=== PATIENT | female | born 1970 | race Two or more races ===

== ENCOUNTER → 2019-03-19 09:30 | Outpatient (CLI) | payer BC | END | disposition home or self-care (01) | LOC: D.MAMMO 09:30 | PROVIDERS: ATTEND Student in an Organized Health Care Education/Training Program | DX: Z12.31 Encounter for screening mammogram for malignant neoplasm of breast (principal) ==

== ENCOUNTER 2019-04-30 10:10 | Inpatient (IN) | payer BC ==
[2019-04-28 11:41] LABS: BASOPHILS 0.1 % (0-2); EOSINOPHILS 1.8 % (0-7); HEMATOCRIT 42.6 % (36.0-48.0); HEMOGLOBIN 13.9 g/dL (12-16); IMMATURE GRANULOCYTES 0.3 % (0-5); MCH 27.6 pg (26.0-34.0); MCHC 32.6 g/dL (31.0-37.0); MCV 84.7 fL (80.0-100.0); MEAN PLATELET VOLUME 9.7 fL (7.4-10.4); MONOCYTES 6.8 % (2-11); PLATELET COUNT 292 10x3/uL (130-400); RBC 5.03 10x6/uL (4.00-5.40); RDW 24.7 % (11.5-14.5); WBC 6.8 10x3/uL (4.8-10.8)
[2019-04-28 12:13] LABS: CALC OSMOLALITY 276 mosm/kg (275-300); CALCIUM 8.7 mg/dL (8.5-10.1); CARBON DIOXIDE 24.8 mmol/L (21.0-32.0); CHLORIDE - SERUM 104 mmol/L (98-107); CREATININE - SERUM 0.7 mg/dL (0.6-1.3); GLUCOSE 97 mg/dL (74-106); POTASSIUM - SERUM 4.2 mmol/L (3.5-5.1); SODIUM 139 mmol/L (136-145); UREA NITROGEN 10 mg/dL (7-18); eGFR NON AFRICAN AMERICAN > 90 mL/min (90-120)
[2019-04-30] VITALS (10 sets, daily range): BP systolic 122–145; BP diastolic 58–69; Ht 157.5 cm; Wt 73.5 kg
[~2019-04-30] VITALS: Ht 157.5 cm; Wt 73.5 kg
[2019-04-30 06:33] LABS: HCG URINE NEGATIVE (NEGATIVE)
--- NOTE | 2019-04-30 09:55 | NUR ---
DON [id number] LOT# [id number] EXP DATE 12/19/2023
[~2019-04-30 10:10] MED LIST: FERROUS SULFAT325 MG PO
--- NOTE | 2019-04-30 11:20 | NUR ---
RECEIVED PT BY BED TO ROOM 1278, POST RUPERT, BILATERAL SALPINGECTOMY BY DR. VILLARREAL. PT IS AWAKE, BUT DROWSY, ALERT AND ORIENTED. SEE ADMISSION ASSESSMENT FOR COMPLETE ASSESSMENT. PT HAS BONILLA CATH NOTED TO HAVE CLEAR BLUE/GREEN URINE IN BONILLA BAG, 500 CC'S NOTED. PT HAS LARGE WHITE DRESSING OVER ABDOMEN, LOW TRANSVERSE INCISION, C/D/I. SCD'S PLACED. PT HAS LR INFUSING OFF PUMP AT SLOW RATE, NO REDNESS OR SWELLING NOTED TO IV SITE TO RIGHT HAND. SR UP X 2, CALL LIGHT AND PHONE WITHIN REACH.
--- NOTE | 2019-04-30 12:00 | NUR ---
INCENTIVE SPIROMETER GIVEN TO PATIENT WITH GOAL LEVEL DEMONSTRATED ON SPIROMETER. PATIENT DEMONSTRATES USING SPIROMETER WITHOUT DIFFICULTY.
--- NOTE | 2019-04-30 12:10 | NUR ---
DR. VILLARREAL ON UNIT, TO ROOM TO SPEAK WITH PT.
--- NOTE | 2019-04-30 12:36 | NUR ---
PT SITTING UP IN BED EATING CLEAR LIQUID DIET. AWAKE, ALERT. MALE VISITOR AT BEDSIDE. NO COMPLAINTS OF PAIN OR NAUSEA AT THIS TIME.
--- NOTE | 2019-04-30 13:59 | NUR ---
SITTING UP IN BED. AWAKE, ALERT. STATES IS COMFORTABLE WITH A STATED PAIN LEVEL OF 5. HAS BEEN USING THE MOTH PROOFER. BONILLA DRAINING WELL TO GRAVITY. SCD'S IN PLACE AND CYCLING. IV AND MOTH PROOFER CONTINUES TO INFUSE WITHOUT DIFFICULTY. USING INCENTIVE SPIROMETER. NAUSEA IS BETTER. NO OTHER COMPLAINTS AT THIS TIME.
--- NOTE | 2019-04-30 14:30 | NUR ---
RESTING WITH EYES CLOSED. ROOM DARKENED WTH DIMMED LIGHTS. NO COMPLAINTS AT THIS TIME.
--- NOTE | 2019-04-30 15:30 | NUR ---
LAB HERE TO DRAW CBC. PT AWAKE AND ALERT. FEMALE VISITOR ALSO HERE TO SEE PT.
[2019-04-30 15:38] LABS: BASOPHILS 0 % (0-2); EOSINOPHILS 0 % (0-7); HEMATOCRIT 37.5 % (36.0-48.0); HEMOGLOBIN 12.2 g/dL (12-16); IMMATURE GRANULOCYTES 0.3 % (0-5); LYMPHOCYTES 2.6 % (15-50); MCH 27.6 pg (26.0-34.0); MCHC 32.5 g/dL (31.0-37.0); MCV 84.8 fL (80.0-100.0); MEAN PLATELET VOLUME 9.9 fL (7.4-10.4); MONOCYTES 2.5 % (2-11); NEUTROPHILS 94.6 % (40-80); RBC 4.42 10x6/uL (4.00-5.40); RDW 24.1 % (11.5-14.5); WBC 15.5 10x3/uL (4.8-10.8)
--- NOTE | 2019-04-30 15:40 | NUR ---
PT STATES SHE HAD A SMALL AMOUNT OF EMESIS. 5-10ML CLEAR EMESIS NOTED IN EMESIS BAG
[2019-04-30 15:51] LABS: PLATELET COUNT 230 10x3/uL (130-400)
--- NOTE | 2019-04-30 17:54 | NUR ---
REPORT CALLED TO DR. DIMA MD MOBILE HOME MECHANIC. PT C/O NAUSEA, AND IS REQUESTING SOMETHING FOR NAUSEA. TELEPHONE ORDER RECEIVED TO ADMINISTER ZOFRAN 4 MG Q 4 HRS PRN N/V.
--- NOTE | 2019-04-30 18:32 | NUR ---
RESTING COMFORTABLY. NAUSEA RESOLVED WITH ZOFRAN. AND OTHER VISITOR AT BEDSIDE. URINE HAS TRANSITIONED FROM LIGHT BLUE/GREEN TO YELLOW.
--- NOTE | 2019-04-30 19:23 | NUR ---
BEDSIDE REPORT REC'D FROM Pauline BURCIAGA RN. PT REC'D SITTING IN HIGH FOWLERS POSITION WATCHING TV AND HOLDING EMESIS BAG. REPORTS THAT SHE FEELS NAUSEA IN "WAVES" AND IS NOT CURRENTLY NAUSEATED JUST HOLDING BAG IN CASE. C/O "BURNING" IN ABD AND CRAMPING TO LOWER BACK 5/10, REPORTS THAT COMBER TENDER IS CONTROLLING PAIN WELL, DENIES ADDITIONAL NEEDS FOR PAIN INTERVENTION AT THIS TIME. ASSIST TO SITTING POSITION ON SIDE OF BED PER PT REQUEST.
--- NOTE | 2019-04-30 19:33 | NUR ---
ASSISTED BACK TO SEMI FOWLERS POSITION. REPORTS FEELING DIZZY WHILE SITTING UP ON EDGE OF BED. DENIES NAUSEA AND REPORTS THAT PAIN TO BACK IS "MUCH BETTER." ICE PACK PROVIDED. BED IN LOW POSITION WITH SRUP X2. CALL LIGHT AND PHONE WITHIN REACH. WILL CONTINUE TO MONITOR.
--- NOTE | 2019-04-30 19:42 | NUR ---
SHIFT ASSESSMENT COMPLETED PER FLOWSHEET. VSS. SCD'S ON BLE. INCENTIVE SPIROMETER DONE, COUGH, TURN AND DEEP BREATHING DONE WITH EXCELLENT EFFORT. POC DISCUSSED WITH PT, VERBALIZES UNDERSTANDING AND DENIES QUESTIONS. STATES THAT SPOUSE WILL BE COMING TO STAY OVERNIGHT WITH HER, LINENS PROVIDED. INCISION NOTED TO UMIBILCUS, WELL APPROXIMATED, GLUE INTACT WITH NO S/S OF INFECTION, NO DRAINAGE NOTED. PT EDUCATED ON INCISIONAL CARE WHEN ABLE TO SHOWER AND S/S OF INFECTIONB IN ADDITION TO EDUCATION DOCUMENTED ON FLOWSHEET, VERBALIZES UNDERSTANDING. BED IN LOW POSITION WITH SRUP X2. CALL LIGHT AND PHONE WITHIN REACH. WILL CONTINUE TO MONITOR. BONILLA DRAINING LIGHT BLUE/GREEN TINGED URINE TO BEDSIDE DRAINAGE. BOWEL SOUNDS PRESENT AND ACTIVE X4 QUADRANTS, DENIES PASSING FLATUS BUT REPORTS THAT SHE IS BELCHING FREQUENTLY. WILL CONTINUE TO MONITOR.
--- NOTE | 2019-04-30 21:20 | NUR ---
PT REPOSITIONED AT THIS TIME. PAD PLACED AND PERICARE PROVIDED. NO NAUSEA NOTED AT THIS TIME. Mariangel WOODRUFF RN
[2019-05-01 00:08] VITALS: BP 133/60
--- NOTE | 2019-05-01 00:08 | NUR ---
PT MEDICATED FOR PAIN LEVEL OF 6. VSS. Mariangel WOODRUFF RN
--- NOTE | 2019-05-01 00:48 | NUR ---
PT ASLEEP AT THIS TIME. DID NOT AWAKEN FOR PAIN REASSESSEMENT. Mariangel WOODRUFF RN
--- NOTE | 2019-05-01 02:00 | NUR ---
PT RESTING COMFORTABLY AT THIS TIME. NO S/S OF PAIN NOTED. Mariangel WOODRUFF RN
--- NOTE | 2019-05-01 04:00 | NUR ---
PT CONTINUES RESTING COMFORTABLY. RESPS EVEN AND UNLABORED. Mariangel WOODRUFF RN
[2019-05-01 06:12] VITALS: BP 120/59
--- NOTE | 2019-05-01 06:12 | NUR ---
VSS. PT MEDICATED FOR PAIN OF 5. NO DISTRESS NOTED. Mariangel WOODRUFF RN
--- NOTE | 2019-05-01 07:00 | NUR ---
THIS RN AND Mariangel WOODRUFF RN TO BEDSIDE FOR BEDSIDE SHIFT REPORT. REC'D PT AA&O X 4 SITTING UP IN BED VISITING W/SPOUSE. PAIN ASSESSED. PT REPORTS PAIN 5/10 AFTER TORADOL ADMIN. PT REPORTS PAIN 5/10 IS TOLERABLE FOR HER. DENIES NEEDS FOR FURTHER PAIN INTERVENTIONS AT THIS TIME. IV SITE TO LEFT HAND W/20GUAGE CATH. NS INFUSING AT 30ML/HR AND DILAUDID PARTNER IN PLACE. BONILLA CATH IN PLACE DRAINING VIA GRAVITY AT BEDSIDE. PT REQUEST TO AM SHIFT TO HAVE SCD WRAPS REMOVED. SCD WRAPS OFF AT THIS TIME. PT DENIES PASSING FLATUS, BUT REPORTS SHE HAS BEEN BELCHING. WHITE BOARD UPDATED AND GOALS FOR THE DAY DISCUSSED W/PT AND SPOUSE. PT INFORMED THAT SHIFT ASSESSMENT WILL BE COMPLETED ONCE SHE HAS FINISHED HER BREAKFAST. PT AGREEABLE.
--- NOTE | 2019-05-01 07:30 | NUR ---
PT'S SPOUSE TO NURSING DESK TO REPORT PT IS QUESTIONING IF SHE SHOULD TAKE HER HOME MEDS. THIS RN TO PT'S ROOM TO ADVISE HER TO TALK WITH DR VILLARREAL WHEN SHE ROUNDS TODAY TO HAVE DR VILLARREAL RESTART HER HOME MEDS. PT AGREEABLE.
[2019-05-01 07:36] LABS: BASOPHILS 0.1 % (0-2); EOSINOPHILS 0.4 % (0-7); HEMATOCRIT 33.6 % (36.0-48.0); IMMATURE GRANULOCYTES 0.3 % (0-5); LYMPHOCYTES 12.8 % (15-50); MCH 27.6 pg (26.0-34.0); MCHC 32.7 g/dL (31.0-37.0); MCV 84.4 fL (80.0-100.0); MONOCYTES 10.7 % (2-11); NEUTROPHILS 75.7 % (40-80); PLATELET COUNT 217 10x3/uL (130-400); RBC 3.98 10x6/uL (4.00-5.40); RDW 24.7 % (11.5-14.5)
--- NOTE | 2019-05-01 08:00 | NUR ---
THIS RN TO BEDSIDE FOR SHIFT ASSESSMENT. PT AA&O X 4. PT HAS EATEN 100% OF BREAKFAST TRAY SERVED. CHEERFUL AND VISITNG WITH SPOUSE. BREATH SOUNDS CL/=, ABD SOFT AND NON DISTENDED. BOWEL SOUNDS PRESENT X 4. 1 LAP INCISION TO UMBILICUS W/DRIED BLOOD NOTED. LOW TRANSVERSE INCISION W/DERMABOND C/D/I. BONILLA CATH REMAINS IN PLACED AND DRAINING VIA GRAVITY. SCD WRAPS REMAIN OFF PER PT REQUEST. PT DENIES NEEDS AT THIS TIME. RATES PAIN 4/10.
[2019-05-01 08:13] VITALS: BP 141/67
--- NOTE | 2019-05-01 09:00 | NUR ---
DR VILLARREAL ON THE UNIT. HAS BEEN TO SEE PT. ORDERS REC'D TO TO NORMALIZE PT. BONILLA MAY BE DISCONTINUED. PT MAY SHOWER AND BEGIN AMBULATING. PO PAIN MEDICATION ORDERS REC'D.
--- NOTE | 2019-05-01 09:20 | NUR ---
TO BEDSIDE TO SALINE LOCK IV SITE AND D/C BONILLA. APPROX 600ML EMPTIED FROM BONILLA. PT TOLERATED WELL. PT EDUCATED ON THE NEED TO OBTAIN THE NEXT 3 VOIDS. NUNS CAP PLACED IN COMMODE. PT TO SITTING ON SIDE OF BED. IV SITE WRAPPED SO PT MAY SHOWER. PT DENIES FEEDING DIZZY. AMBULATORY TO SHOWER W/OUT ASSISTANCE. HIBICLENZ WASH PROVIDED ALONG W/PLAIN SOAP, TOWELS,RAGS,ETC. PT'S BED LINENS CHAGNED. TRASH REMOVED FROM ROOM.
--- NOTE | 2019-05-01 09:45 | NUR ---
PT OUT OF SHOWER. REPORTS PAIN IS STILL 4/10. DENIES NEEDING ADDITIONAL PAIN INTERVENTIONS AT THIS TIME. PT'S MOTHER IN LAW TO ROOM FOR VISIT. BED LOW, SIDE RAILS UP X 2. CALL LIGHT AT PT'S SIDE.
--- NOTE | 2019-05-01 10:40 | NUR ---
PT AMBULATING IN HALLWAY WITH FAMILY MEMBER.
--- NOTE | 2019-05-01 11:53 | OP ---
PATIENT NAME: YONATHAN VILLAGOMEZ MEDICAL RECORD: [id number] :68 LOCATION:[facility]1278 ADMISSION DATE:04/30/19 SURGEON: SUZE VILLARREAL DO DATE OF OPERATION: 04/30/2019 PREOPERATIVE DIAGNOSIS: Symptomatic fibroid uterus. POSTOPERATIVE DIAGNOSIS: Symptomatic fibroid uterus. PRIMARY SURGEON: Suze Villarreal DO FILTERS ASSEMBLER SURGEON: Dr. Shelby. ANESTHESIOLOGIST: Bárbara Aguirre CRNA PROCEDURE: Laparoscopic converted to open total abdominal hysterectomy and bilateral salpingectomy, cystoscopy. FINDINGS: Enlarged fibroid uterus, normal appearing fallopian tubes and bilateral ovaries. SPECIMENS: Uterus, cervix and bilateral fallopian tubes. ESTIMATED BLOOD LOSS: 200 cc. IV FLUIDS: 2100 cc. URINE OUTPUT: 175 cc blue urine, the patient was given methylene blue for cystoscopy. COMPLICATIONS: None. CONDITION: Stable. DESCRIPTION OF PROCEDURE: The risks, benefits, alternatives and indications of the procedure were discussed with the patient. She voiced understanding of the procedure and signed the consent. She was taken to the OR where general anesthesia was administered and found to be adequate. She was placed in the dorsal lithotomy position. She was prepped and draped in the normal sterile fashion. A speculum was placed in the posterior aspect of the vagina and a single tooth tenaculum was used to grasp the anterior lip of the cervix. The uterus was sounded to 10 cm. The cervix was dilated to accommodate a VCare uterine manipulator. The VCare uterine manipulator was placed without difficulty and all other instruments were removed from the vagina. Attention was then turned to the abdomen. Marcaine was placed in the umbilical fold and a scalpel was used to create a 5-mm incision in the umbilical fold. A 5-mm port was placed under direct laparoscopic visualization while the abdomen was elevated with towel clamps. Pneumoperitoneum was achieved to 15 mmHg. After placing the port using the laparoscope, it was determined that the procedure would be unable to be done laparoscopically due to enlarged fibroid uterus. At that time, decision was made to convert to a laparotomy. A Pfannenstiel incision was made with a scalpel and carried down to the underlying layer of the fascia with the Bovie. The fascia was incised in the midline and extended laterally. The inferior aspect of the fascial incision was grasped with Giovanny clamps and the rectus muscle was dissected off sharply. Attention was then OPERATIVE REPORT [id number] YONATHAN VILLAGOMEZ turned to the superior aspect of the fascial incision. The rectus muscle was dissected off in a similar fashion. Rectus muscle was in the midline down to the level of peritoneum. The peritoneum was identified and noted to be free of adherent bowel and entered bluntly. At that time, the 5-mm port was removed from the umbilicus. The peritoneum was further with gentle traction. The patient was placed in Trendelenburg position and the bowel was packed away with moist laparotomy sponges and Rudy retractor was used to get better visualization. The uterine cornu was grasped with an atraumatic grasper and the uterus was gently retracted to the opposite side. The round ligament on that side was suture ligated and transected with the Bovie. The anterior leaf of the broad ligament was dissected to the midline and the vesicouterine peritoneum. The bladder was dissected off the lower uterine segment and the cervix with a combination of blunt and sharp dissection. A window was created in the avascular area of the posterior leaf. The uteroovarian ligament and the fallopian tube was clamped, cut and doubly ligated. The uterine vessels were skeletonized, doubly clamped and cut. The pedicles were suture ligated and good hemostasis noted. The entire procedure was then repeated on the opposite side with good hemostasis. The cardinal ligament and the uterosacral ligament were sequentially clamped, cut and suture ligated bilaterally. Curved Z clamps were placed at the angles of the vagina. The cervix was removed from the vaginal cuff with scissors. The vaginal angle was closed with a Jennifer stitch and tied to the uterosacral ligaments to provide support to the vaginal cuff. The vaginal cuff was then closed with [id number] sutures of 0 Vicryl and good hemostasis was noted. The right fallopian tube was grasped with a Rodney and a curved Jennifer was placed along the mesosalpinx. The fallopian tube was then removed and suture ligated with good hemostasis. That process was again repeated on the opposite side with good hemostasis bilaterally. The pelvis was irrigated with warm sterile saline and good hemostasis was noted at all pedicles and of the vaginal cuff. Jennifer was placed. The patient was taken out of Trendelenburg position. All instruments were removed from the abdomen. The abdomen was explored to ensure complete removal of all laparotomy sponges and the counts were performed twice and were correct. The rectus muscle was then closed with 2-0 Monocryl in a running fashion with good hemostasis. The fascial layer was closed with 0 Vicryl suture in running fashion with good hemostasis. The subcutaneous fat was closed in a running fashion with 2-0 plain suture and the skin was closed with 3-0 Monocryl in a running fashion with good hemostasis and Dermabond covering. All needle, lap, sponge, and instrument counts were again correct times 2. The patient tolerated the procedure well. Prior to awakening, attention was then turned to the vagina. The Patiño was removed and the cystoscope was placed in the urethra and good ureteral jets were noted bilaterally after the patient was given methylene blue. The cystoscope was removed from the bladder and the Patiño was replaced. At that time, the patient was awakened and taken to the recovery room in stable condition. TRANSINT:[id number] Voice Confirmation ID: [id number] DOCUMENT ID: [id number] SUZE VILLARREAL DO at 1153 CC: [id number] DICTATION DATE: 04/30/19 1056 ASSISTANT PRODUCTION EDITOR: 04/30/19 1347 ADM IN [facility] [address] [id number]
--- NOTE | 2019-05-01 12:00 | NUR ---
TO BEDSIDE FOR ROUNDING/VITAL SIGNS. PT AA&O X4. PAIN ASSESED. PT RATES PAIN 3/10. INITIAL BP ELEVATED. PT QUESTIONED IF SHE HAS A HX OF HIGH BLOOD PRESSURE. PT DENIES. 2ND BP OBTAINED IN RT ARM. BP REMAINS SLIGHTLY ELEVATED. MD TO BE NOTIFIED. PT DENIES NEEDS AT THIS TIME.
[2019-05-01 12:10] VITALS: BP 148/65
--- NOTE | 2019-05-01 12:21 | NUR ---
DR VILLARREAL CALLED TO REPORT PT IS REQUESTING HER IV SITE BE DISCONTINUED AND MOST RECENT BP. ORDER REC'D IV SITE MAY BE DISCONTINUED AND NO INTERVENTIONS AT THIS TIME REGARDING BP. GARBAGE DEPOT WORKER TO MONITOR.
--- NOTE | 2019-05-01 12:30 | NUR ---
TO BEDSIDE TO DISCONTINUE IV SITE. IV CATH REMOVED INTACT. SITE WNL. BANDAID PLACED OVER SITE. FRESH ICE WATER SERVED. PT DENIES FURTHER NEEDS.
--- NOTE | 2019-05-01 13:15 | NUR ---
PT RINGS CALL LIGHT TO REPORT SHE HAS VOIDED. THIS RN TO PT'S ROOM. APPROX 400ML LIGHT GREEN COLORED URINE NOTED AND DUMPED. PT DENIES NEEDS AT THIS TIME. RATES PAIN 3/10. BED IN LOW POSITION. SIDE RAILS UP X 2. CALL LIGHT AND PHONE AT BEDSIDE.
--- NOTE | 2019-05-01 14:00 | NUR ---
ROUNDS MADE AND PAIN MEDICATION OFFERED. PT ACCEPTS/ RATES PAIN 06/30. 1 PERCOCET 5/325MG PO GIVEN. PT DENIES FURTHER NEEDS. HAS WATER TO DRINK.
--- NOTE | 2019-05-01 15:00 | NUR ---
ROUNDS MADE. PT LYING IN BED AWAKE WATCHING TV. PAIN AND NEEDS ASSESSED. PT REPORTS PAIN 3/10 AND DENIES NEEDS.
--- NOTE | 2019-05-01 15:30 | NUR ---
PT AMBULATORY OFF UNIT AT THIS TIME WITH SPOUSE TO GO TO MED-SURG TO SPEAK WITH HER BOSS.
--- NOTE | 2019-05-01 16:00 | NUR ---
PT RETURNS AMBULATORY TO UNIT AND HER ROOM. DENIES NEEDS. CONTINUES TO REPORT PAIN LEVEL 3/10. DENIES NEEDS AT THIS TIME.
[2019-05-01 18:09] VITALS: BP 137/65
--- NOTE | 2019-05-01 18:15 | NUR ---
ROUNDS MADE. PT LYING AWAKE IN BED TALKING ON THE PHONE. PAIN AND NEEDS ASSESSED. PT REPORTS PAIN 3/10. SCHEDULED MOTRIN AND PERCOCET 5/325MG PO GIVEN. BP TAKEN. SEE FLOWSHEET. PT DENIES NEEDS AT THIS TIME.
[2019-05-01 19:52] VITALS: BP 149/75
--- NOTE | 2019-05-01 19:58 | NUR ---
PT'S INCISION IS CLEAN, DRY, AND DERMABOND IS INTACT. PT STATES SHE HAS PAIN 4/10 BUT THAT IT IS TOLERABLE AT THIS TIME AND DOES NOT SEEK ANY INTERVENTIONS. PT REQUESTED THAT PILLOWS AND A BLANKET BE BROUGHT IN FOR HER TO SPEND THE NIGHT, RN PROVIDED FAMILY WITH PILLOWS AND BEDDING. PT HAS BEEN AMBULATING IN THE ROOM, PT HAS A STEADY GAIT. PT STATES THAT ALL HER OTHER NEEDS HAVE BEEN MET AT THIS TIME, AND THAT SHE WILL CALL OUT IF SHE NEEDS ANYTHING ELSE. BED IS IN LOWEST POSITON, SIDE RAILS UP X2, CALL LIGHT AND TELEPHONE WITHIN REACH.
[2019-05-02 00:32] VITALS: BP 131/60
--- NOTE | 2019-05-02 00:32 | NUR ---
RN TO BEDSIDE. PT STATES PAIN IS 3/10. PT PROVIDED HER PAIN MEDICATION REQUESTED. NO BLEEDING NOTED ON PAD AT THIS TIME. PT'S INCISION IS CLEAN, DRY, DERMABOND IS INTACT, NO SIGNS OF INFECTION NOTED TO SITE. PT REQUESTS AN EXTRA BLANKET FOR HERSELF. PT PROVIDED WITH EXTRA BLANKET. PT STATES ALL HER NEEDS HAVE BEEN MET AT THIS TIME. BED IN LOWEST POSITION. SIDE RAILS UPX2. TELEPHONE AND CALL LIGHT WITHIN REACH.
[2019-05-02 05:41] VITALS: BP 143/69
--- NOTE | 2019-05-02 05:41 | NUR ---
RN TO BEDSIDE. PT COMPLAINS OF 5/10 PAIN. PT PROVIDED PERCOCET 5. PT'S INCISION IS CLEAN, DRY, AND DERMABOND IS INTACT, NO SIGNS OF INFECTION NOTED TO INCISION SITE. PT STATES ALL HER NEEDS HAVE BEEN MET. BED IN LOWEST POSITION, SIDE RAILS UPX2, TELEPHONE AND CALL LIGHT WITHIN REACH.
--- NOTE | 2019-05-02 07:30 | NUR ---
DR. VILLARREAL ON UNIT, AND TO ROOM TO SEE PT FOR AM ROUNDING. VERBAL ORDER RECEIVED TO DISCHARGE PT HOME TODAY TO FOLLOW UP IN CLINIC FOR POST OP VISIT.
--- NOTE | 2019-05-02 07:45 | NUR ---
AM ASSESSMENT COMPLETED. SEE FLOWSHEET. DIETARY SERVES BREAKFAST TRAY. PT SERVED FRESH MUG OF ICE WATER. PT DENIES ALL OTHER NEEDS AT THIS TIME. SRUP X2, CALL LIGHT AND PHONE WITHIN REACH.
[2019-05-02 08:15] VITALS: BP 142/68
--- NOTE | 2019-05-02 08:25 | NUR ---
C/O DULL PAIN TO ABDOMINAL INCISION A 5 ON NUMERIC PAIN SCALE. INCISION CLEAN, DRY, AND INTACT WITH DERMABOND PRESENT. 600 ML MOTRIN PO GIVEN.
--- NOTE | 2019-05-02 08:30 | NUR ---
UP TO SHOWER INDEPENDENTLY. TOWELS AND GOWN PLACED IN BR. DENIES NEED FOR ASSISTANCE WITH SHOWER.
--- NOTE | 2019-05-02 09:26 | NUR ---
ROOM CHECK DONE. IN BED TALKING ON PHONE. FRESH ICE PACK GIVEN AND TOP LINENS CHANGED. DENIES PAIN AT THIS TIME.
--- NOTE | 2019-05-02 11:45 | NUR ---
DIETARY SERVES LUNCH TRAY, LARGE MUG OF ICE WATER SERVED TO PT. SEE EMAR FOR MED ADM BY THIS RN. SRUP X2, CALL LIGHT AND PHONE WITHIN REACH. PT DENIES NEEDS AT THIS TIME.
[2019-05-02] MEDS ORDERED: PERCOCET 5-3251 TAB PO (14:34)
--- NOTE | 2019-05-02 15:00 | NUR ---
written & verbal d/c instructions reviewed w/ pt. pt voiced understanding of all instructions. pt given rx at this time also.
--- NOTE | 2019-05-02 16:46 | NUR ---
pain meds given see emar. pt sitting up eating dinner at this time.
--- NOTE | 2019-05-02 17:10 | NUR ---
pt d/c at this time vis wheelchair w/ . pt in stable condition w/ no s/s of distress.
== END 2019-05-02 17:10 | disposition home or self-care (01) | DRG 743 ==
LOC: D.OPS 10:10 → D.LD 10:12 → D.OPS 10:12 → D.LD 11:00
PROVIDERS: ADMIT Student in an Organized Health Care Education/Training Program; ATTEND Student in an Organized Health Care Education/Training Program
PROC: 0UT90ZZ Resection of Uterus, Open Approach (ICD-10-PCS; principal; 2019-04-30 07:30)
PROC: 0UT70ZZ Resection of Bilateral Fallopian Tubes, Open Approach (ICD-10-PCS; 2019-04-30 07:30)
PROC: 0TJB8ZZ Inspection of Bladder, Via Natural or Artificial Opening Endoscopic (ICD-10-PCS; 2019-04-30 07:30)
DX: D25.9 Leiomyoma of uterus, unspecified (principal)

== ENCOUNTER 2019-05-21 02:59 | Inpatient (IN) | payer BC ==
[~2019-05-21] VITALS: Ht 157.5 cm; Wt 72.7 kg
[~2019-05-21 02:59] MED LIST changes: +PERCOCET 5-3251 TAB PO
[2019-05-21 03:38] LABS: BASOPHILS 0.2 % (0-2); EOSINOPHILS 3.9 % (0-7); HEMATOCRIT 44.2 % (36.0-48.0); HEMOGLOBIN 15.3 g/dL (12-16); IMMATURE GRANULOCYTES 0.3 % (0-5); LYMPHOCYTES 9.5 % (15-50); MCH 29.7 pg (26.0-34.0); MCHC 34.6 g/dL (31.0-37.0); MCV 85.8 fL (80.0-100.0); MONOCYTES 4.1 % (2-11); RBC 5.15 10x6/uL (4.00-5.40); RDW 17.2 % (11.5-14.5); WBC 15.5 10x3/uL (4.8-10.8)
[2019-05-21 03:44] LABS: PLATELET COUNT 357 10x3/uL (130-400)
[2019-05-21 03:54] LABS: CALC OSMOLALITY 277 mosm/kg (275-300); CALCIUM 9.1 mg/dL (8.5-10.1); CHLORIDE - SERUM 102 mmol/L (98-107); CREATININE - SERUM 0.8 mg/dL (0.6-1.3); GLUCOSE 130 mg/dL (74-106); SODIUM 138 mmol/L (136-145); UREA NITROGEN 12 mg/dL (7-18); eGFR NON AFRICAN AMERICAN 81 mL/min (90-120)
[2019-05-21 04:02] LABS: ALBUMIN 3.8 g/dL (3.4-5.0); ALKALINE PHOSPHATASE 96 U/L (30-120); ALT (SGPT) 34 U/L (10-68); AMYLASE - SERUM 75 U/L (25-115); BILIRUBIN - TOTAL 0.28 mg/dL (0.2-1.3); LIPASE 72 U/L (73-393); PROTEIN - SERUM 8.4 g/dL (6.4-8.2)
[2019-05-21 04:04] LABS: TROPONIN-I < 0.017 ng/mL (0.000-0.060)
[2019-05-21 04:31] LABS: APPEARANCE CLEAR (CLEAR); BILIRUBIN NEGATIVE (NEGATIVE); COLOR YELLOW (YELLOW); GLUCOSE NEGATIVE (NEGATIVE); KETONE NEGATIVE (NEGATIVE); NITRITE NEGATIVE (NEGATIVE); PROTEIN 2+ mg/dL (NEGATIVE); UROBILINOGEN NORMAL (NORMAL)
[2019-05-21 04:32] VITALS: BP 135/78
[2019-05-21 04:32] LABS: BACTERIA FEW /hpf (NEGATIVE); CALCIUM OXALATE CRYSTALS 0-5 /hpf (NONE SEEN); EPITHELIAL CELLS 0-5 /hpf (0-5); MUCUS >1+ /lpf (NONE SEEN); RED CELLS - URINE 0-5 /hpf (0-5); WHITE CELLS - URINE 0-5 /hpf (NEGATIVE)
[2019-05-21 06:12] VITALS: BMI 29.3
[2019-05-21 09:23] VITALS: BP 154/92
[2019-05-21 13:13] VITALS: BP 165/74
[2019-05-21 14:09] VITALS: Ht 157.5 cm; Wt 72.7 kg
[2019-05-21 14:30] VITALS: BP 146/93
--- NOTE | 2019-05-21 14:30 | NUR ---
RECEIVED PT VIA WHEELCHAIR FROM MEDICAL FLOOR TO ROOM 1219. PT TO BED. ORIENTED TO ROOM, BED, AND CALL LIGHT. VS NOTED. HRRR WITHOUT AUDIBLE MURMUR. BBS CLEAR. BS X 4. ABDOMEN SOFT/NON-DISTENDED. WELL-HEALED LOW TRANSVERSE INCISION NOTED. PT DENIES VAGINAL DISCHARGE. NEG HOMANS' SIGN. PPP. NO EDEMA NOTED TO BLE. PIV TO RIGHT WRIST- 20 GAUGE CATHELON NOTED. SITE CLEAR. NS INFUSING AT 125 ML/HR. PT DENIES HEADACHE, VIS PROBLEMS, EPIG OR RUQ PAIN AT THIS TIME. SR UP X 2. CALL LIGHT IN REACH.
--- NOTE | 2019-05-21 14:45 | NUR ---
PT INFORMED OF ORDER FOR SCD'S. PT REFUSES SCDS AT THIS TIME.
[2019-05-21 15:25] VITALS: BP 145/78
--- NOTE | 2019-05-21 15:34 | NUR ---
PT C/O H/A. TYLENOL 650 MG GIVEN PO ORDERED. PT INSTRUCTED ON MED. VERBALIZES UNDERSTANDING. ICE WATER PROVIDED TO PT. VS NOTED.
--- NOTE | 2019-05-21 17:04 | NUR ---
PT C/O NON-PRODUCTIVE COUGH SINCE SUNDAY. REQUESTING PHYSICIAN BE CALLED AND ASK FOR ROBITUSSIN. DR FERNANDEZ, HIM CLERK PHYSICIAN PAGED THROUGH ANSWERING SERVICE.
--- NOTE | 2019-05-21 17:20 | NUR ---
DR CANALES NOTIFIED OF PT REQUEST. ORDER RECEIVED.
--- NOTE | 2019-05-21 18:19 | NUR ---
ROBITUSSIN 10 ML GIVEN PO ORDERED FOR PT C/O NON-PRODUCTIVE COUGH.
--- NOTE | 2019-05-21 19:09 | NUR ---
PM ROUNDS MADE, PT VISITING WITH S/O, INFORMED PT THAT I WILL BE BACK SHORTLY, PT VERBALIZES UNDERSTANDING, DENIES NEEDS OR PAIN AT THIS TIME
[2019-05-21 20:15] VITALS: BP 159/82
--- NOTE | 2019-05-21 20:15 | NUR ---
ASSESSMENT PER FLOW SHEET, VS OBTAINED, IV IN RIGHT WRIST INTACT WITH NO REDNESS OR EDEMA INFUSING VIA PUMP NS AT 125 ML/HR PER MD ORDERS, SEE EMAR, PT REPORTS FLATUS, LOOSE BM, AND VOIDING WITH NO DIFFICULTY, PT DENIES NEEDS OR PAIN AT THIS TIME, BED IN LOW POSITION, SIDE RAILS X 2, CALL LIGHT IN REACH
--- NOTE | 2019-05-21 20:40 | NUR ---
PT DICE TABLE PERSON LIGHT, PT HAD LOOSE BM, SLIGHTLY BLOOD TINGED IN COMMODE, PT INST TO USE [place] HAT WHEN VOIDING OR HAVING BM, PT VERBALIZES UNDERSTANDING, DENIES FURTHER NEEDS
--- NOTE | 2019-05-21 21:25 | NUR ---
PT AWAKE, YL REGINA IVPB PER MD ORDERS, SEE EMAR, PT REPORTS HAVING ANOTHER SMALL BM, LIGHTLY BLOOD TINGED IN [place] HAT, PT INFORMED THAT I WILL LET DAY SHIFT KNOW TO LET THE DOCTOR KNOW WHEN HE MAKES ROUNDS, PT ALSO INST TO INFORM THE DOCTOR IN THE MORNING, PT VERBALIZES UNDERSTANDING, DENIES NEEDS OR PAIN
--- NOTE | 2019-05-21 22:36 | NUR ---
PT RESTING WITH EYES CLOSED, RESP QUIET, NO DISTRESS NOTED, LEFT UNDISTURBED AT THIS TIME, S/O ASLEEP AT BEDSIDE
[2019-05-22 00:14] VITALS: BP 161/77
--- NOTE | 2019-05-22 00:14 | NUR ---
PT AWAKE, VISITING WITH FAMILY, VS OBTAINED, C/O ABD PAIN, ADM TYLENOL PER MD ORDERS, SEE EMAR, SCD'S CONTINUE ON AND WORKING PROPERLY, PT DENIES FURTHER NEEDS, S/O ASLEEP AT BEDSIDE
--- NOTE | 2019-05-22 01:01 | NUR ---
PT COMPREHENSIVE OPHTHALMOLOGIST LIGHT, IV BEEPING, NEW BAG OF NS HUNG INFUSING VIA PUMP AT 125 ML/HR, PER MD ORDERS, SEE EMAR, PT RATES ABD PAIN 06/30, STATES "IT FEELS A LITTLE BETTER", DENIES NEEDS AT THIS TIME, S/O ASLEEP AT BEDSIDE
--- NOTE | 2019-05-22 03:33 | NUR ---
PT RESTING WITH EYES CLOSED, RESP QUIET, NO DISTRESS NOTED, LEFT UNDISTURBED AT THIS TIME, BED IN LOW POSITION, SIDE RAILS X 2, CALL LIGHT IN REACH, S/O ASLEEP AT BEDSIDE
[2019-05-22 05:21] VITALS: BP 109/67
--- NOTE | 2019-05-22 05:21 | NUR ---
PT RESTING WITH EYES CLOSED, AROUSES TO SOFT VERBAL STIMULATION, VS OBTAINED, PUMPS CLEARED, PT C/O BRIONES, ADM TYLENOL PO AND HUNG LEVAQUIN IVPB PER MD ORDERS, SEE EMAR, PT DENIES FURTHER NEEDS, S/O AT BEDSIDE
--- NOTE | 2019-05-22 05:52 | NUR ---
PT RESTING WITH EYES CLOSED, RESP QUIET, NO DISTRESS NOTED, LEFT UNDISTURBED AT THIS TIME, S/O ASLEEP AT BEDSIDE
[2019-05-22 07:30] LABS: BASOPHILS 0.3 % (0-2); EOSINOPHILS 10.9 % (0-7); HEMATOCRIT 36.2 % (36.0-48.0); IMMATURE GRANULOCYTES 0.3 % (0-5); LYMPHOCYTES 24.1 % (15-50); MCH 28.9 pg (26.0-34.0); MCHC 33.1 g/dL (31.0-37.0); MCV 87.2 fL (80.0-100.0); MEAN PLATELET VOLUME 10.1 fL (7.4-10.4); MONOCYTES 6.1 % (2-11); NEUTROPHILS 58.3 % (40-80); RBC 4.15 10x6/uL (4.00-5.40)
[2019-05-22 07:32] LABS: PLATELET COUNT 274 10x3/uL (130-400); WBC 5.9 10x3/uL (4.8-10.8)
[2019-05-22 07:48] LABS: ALBUMIN 2.9 g/dL (3.4-5.0); ALKALINE PHOSPHATASE 81 U/L (30-120); ALT (SGPT) 29 U/L (10-68); BILIRUBIN - TOTAL 0.16 mg/dL (0.2-1.3); CALCIUM 7.8 mg/dL (8.5-10.1); CARBON DIOXIDE 27.5 mmol/L (21.0-32.0); CHLORIDE - SERUM 107 mmol/L (98-107); CREATININE - SERUM 0.6 mg/dL (0.6-1.3); GLUCOSE 91 mg/dL (74-106); SODIUM 140 mmol/L (136-145); eGFR NON AFRICAN AMERICAN > 90 mL/min (90-120)
[2019-05-22 07:49] LABS: CALC OSMOLALITY 275 mosm/kg (275-300); POTASSIUM - SERUM 3.8 mmol/L (3.5-5.1); PROTEIN - SERUM 6.1 g/dL (6.4-8.2); UREA NITROGEN 5 mg/dL (7-18)
[2019-05-22 08:25] VITALS: BP 155/79
--- NOTE | 2019-05-22 08:30 | NUR ---
ASSESSMENT COMPLETED. SEE FLOWSHEET.
--- NOTE | 2019-05-22 08:57 | NUR ---
DR. SALAS NOTIFIED OF PATIENT REQUEST FOR TRAMADOL FOR PAIN. ALSO INFORMED THAT PT HAD A LOOSED STOOL CONTAINING BRIGHT RED BLOOD LAST EVEFNING AT APPROXIMATEL 2100. ORDERS RECEIVED FOR PAIN MED AND HEMACULT OF NEXT STOOL.
--- NOTE | 2019-05-22 09:04 | NUR ---
PT AMBULATING OFF UNIT WITH .
--- NOTE | 2019-05-22 09:45 | NUR ---
STOOL SAMPLE COLLECTED AND SENT TO LAB.
--- NOTE | 2019-05-22 11:21 | NUR ---
PT UP TO SHOWER.
[2019-05-22 15:00] VITALS: BP 140/52
--- NOTE | 2019-05-22 15:00 | NUR ---
RESTING WITH EYES CLOSED. AWAKENED FOR VITAL SIGNS. STATES HEADACHE IS GONE. NO COMPLAINTS OF ABDOMENAL PAIN.
--- NOTE | 2019-05-22 16:45 | NUR ---
PT REQUESTING REGULAR DIET. CALLED DR. SALAS'S OFFICE. LEFT MESSAGE WITH NURSE.
--- NOTE | 2019-05-22 17:20 | NUR ---
C/O HEADACHE, RIGHT FRONTAL, ABOVE EYE. REQUESTS PAIN MEDICINE.
--- NOTE | 2019-05-22 18:13 | NUR ---
RESTING IN BED, LIGHTS LOW. AT BEDSIDE. STATES HEADACHE IS BETTER.
--- NOTE | 2019-05-22 18:35 | NUR ---
DR. SALAS HERE TO SEE PT.
--- NOTE | 2019-05-22 19:06 | NUR ---
IV SALINE LOCKED. REGULAR DIET SERVED.
--- NOTE | 2019-05-22 19:45 | NUR ---
rEPORT GIVEN BY BARBI FARLEY. PT HAD A VAG HYST EARLIER IN THE MONTH. SHE IS IN NOW FOR ILIETIS, LEUKOCYTOSIS, AND N/V. SHE IS NOT C/O OF ANYTHING WHEN ROUNDS MADE. SHE HAS A HEP LOCK IN THE RIGHT WRIST. EXPLAINED THAT I WOULD BE BACK TO DO A FULL ASSESSMENT.
[2019-05-22 19:55] VITALS: BP 161/73
--- NOTE | 2019-05-22 20:20 | NUR ---
PT IS RESTING QUIETLY IN HER ROOM. HER IS AT THE BEDSIDE. SHE HAS NO C/O AT THIS TIME. ASSESSMENT COMPLETED. HEART SOUNDS WNL, LUNGS CLEAR AND I CAN HEAR FAINT BOWEL SOUNDS. SHE IS UP AD LUKE IN HER ROOM.
--- NOTE | 2019-05-22 21:10 | NUR ---
PT IS DOING WELL. NO C/O, PT RACHEL IS BEING HUNG AT THIS TIME. SHE IS NOW ON A REGULAR DIET. SHE ATE A SANDWICH AND TOLERATED WELL.
--- NOTE | 2019-05-22 22:10 | NUR ---
Angelica HAS INFUSED. IV SALINE LOCKED. NO NEW C.O AT THIS TIME. SHE AND HER ARE TRYING TO SLEEP NOW.
[2019-05-23] VITALS: BP 139/60
--- NOTE | 2019-05-23 00:25 | NUR ---
PT IS RESTING WITH HER EYES CLOSED. NO C/O LOOSE STOOLS, N/V, OR PAIN.
--- NOTE | 2019-05-23 02:15 | NUR ---
NO C/O AT THIS TIME. rESTING QUIETLY.
--- NOTE | 2019-05-23 05:15 | NUR ---
IV JHONY TAPIA. PT AWAKE NOW. SHE VERBALIZES NO C/0
[2019-05-23 07:15] VITALS: BP 152/84
--- NOTE | 2019-05-23 07:25 | NUR ---
PT A&A AT THIS TIME SITTING UP IN BED. PT C/O PAIN. SEE EMAR FOR PAIN MEDS GIVEN.
--- NOTE | 2019-05-23 08:18 | NUR ---
SEE EMAR RACHEL TAPIA AT THIS TIME. PT STATED BRIONES IS BETTER SEE EMAR.
--- NOTE | 2019-05-23 09:25 | NUR ---
PT A&A W/ NO C/O AT THIS TIME SITTING UP IN BED.
--- NOTE | 2019-05-23 11:21 | NUR ---
PT A&A W/ NO C/O AT THIS TIME.
--- NOTE | 2019-05-23 12:00 | NUR ---
PT W/ NO C/O AT THIS TIME.
[2019-05-23 12:25] VITALS: BP 145/95
--- NOTE | 2019-05-23 12:25 | NUR ---
PT A&A C/O BRIONES AT THIS TIME.
--- NOTE | 2019-05-23 12:47 | NUR ---
PAIN MEDS GIVEN SEE EMAR.
--- NOTE | 2019-05-23 13:30 | NUR ---
PT A&A W/ NO C/O AT THIS TIME.PT STATES BRIONES IS BETTER SEE EMAR.
--- NOTE | 2019-05-23 14:55 | NUR ---
SALINE LOCK REMOVED WITH TIP INTACT. REVIEWED DC INSTRUCTIONS TO INCLUDE S&S ILEITIS AND PREVIOUS POST OP INSTRUCTIONS. VERBALIZED UNDERSTANDING. NO SPECIFIC QUESTIONS AT THIS TIME. PLAN DC HOME WHEN FAMILY WHEN THEY ARRIVE.
--- NOTE | 2019-05-23 15:00 | NUR ---
WRITTEN & VERBAL D/C INSTRUCTIONS REVIEWED W/ PT. PT VOICED UNDERSTANDING OF ALL INSTRUCTIONS & F/U W/ DR. SALAS 05/29 AT 1130.
--- NOTE | 2019-05-23 16:02 | NUR ---
PT A&A W/ NO C/O AT THIS TIME. PT WALKING IN ROOM.
--- NOTE | 2019-05-23 17:25 | NUR ---
PT AMBULATED OFF UNIT W/ STEADY GAIT & NO S/S OF DISTRESS IN STABLE CONDITION.
== END 2019-05-23 17:25 | disposition home or self-care (01) | DRG 392 ==
LOC: D.ER 02:59 → D.WS 04:57 → D.MS 04:57 → D.WS 14:19
PROVIDERS: Family Medicine; ADMIT Family Medicine; ATTEND Family Medicine
DX: K52.89 Other specified noninfective gastroenteritis and colitis (principal); R12 Heartburn; K80.20 Calculus of gallbladder without cholecystitis without obstruction